=== PATIENT | female | born 1965 | race African-American/Black ===

== ENCOUNTER 2018-05-29 08:25 | Emergency (ER) | payer SELFPAY ==
[~2018-05-29] VITALS: Ht 162.6 cm; Wt 98.6 kg
[2018-05-29] MEDS ORDERED: NORCO, ANEXSIA 5/325MG TABLET (HYDROcodone/ACETAMINOPHEN) PO ONE (10:00)
--- NOTE | 2018-05-29 10:09 | REP ---
LEFT ELBOW, FOUR VIEWS: HISTORY: Trauma. There is no acute fracture or dislocation. The joint space is normal in appearance. IMPRESSION: There is no acute fracture or dislocation. Electronically Signed by Joe Menedz MD 05/29/2018 10:10 A
--- NOTE | 2018-05-29 10:14 | REP ---
LEFT SHOULDER, THREE VIEWS: HISTORY: Trauma. There is no acute fracture or dislocation. The joint spaces are normal in appearance. IMPRESSION:There is no acute fracture or dislocation. Electronically Signed by Joe Mendez MD 05/29/2018 10:18 A
--- NOTE | 2018-05-29 10:28 | REP ---
LEFT KNEE, COMPLETE: 05/29/2018. Clinical history: Trauma. Findings: Marginal osteophytes at the medial and lateral joint lines as well as the tibial spines. The patellar joint margin showed some spurs and narrowing on the lateral view. A suspected small suprapatellar effusion noted. I do not see a definite loose body or osteochondral defect. No visible or displaced fracture nor avulsion. Impression: 1. Tricompartment osteoarthritic change with question of a small joint effusion but no fracture, avulsion, loose body or definite osteochondral defect. Electronically Signed by Venu Mcmahon MD 05/29/2018 08:34 P
[2018-05-29 10:32] VITALS: O2SAT 98
--- NOTE | 2018-05-29 10:54 | REP ---
AP pelvis one-view : There is no pelvic fracture. The sacroiliac articulations and hip articulations are unremarkable. There are multiple calcifications, likely phleboliths. Impression: Negative AP pelvis. Left hip two views: There is no fracture or dislocation. Mineralization joint space are normal. No calcifications or foreign bodies. Impression: Negative left hip. Electronically Signed by Angel Barillas MD 05/29/2018 10:46 A
[2018-05-29 11:10] VITALS: BP 146/82
== END 2018-05-29 11:12 | disposition home or self-care (01) ==
LOC: EDSEX 08:25 → M ED 08:25 → EDBD 08:25 → M ED 11:12
DX: T14.8XXA Other injury of unspecified body region, initial encounter (principal); W00.0XXA Fall on same level due to ice and snow, initial encounter; Y92.410 Unspecified street and highway as the place of occurrence of the external cause

== ENCOUNTER 2018-11-14 13:22 | Emergency (ER) | payer OTHER, SELFPAY ==
[~2018-11-14] VITALS: Ht 162.6 cm; Wt 113.6 kg
[2018-11-14] MEDS ORDERED: MOTR200T44 PO (13:27)
[2018-11-14] MEDS ORDERED: KETOROLAC 60 MG/2 ML VIAL (J1885) IM ONE (15:30)
[2018-11-14] MEDS ORDERED: IBUP-1022 PO (15:39)
[2018-11-14] MEDS ORDERED: CYCL10TA PO (15:39)
[2018-11-14 16:37] VITALS: BP 174/91
== END 2018-11-14 16:47 | disposition home or self-care (01) ==
LOC: M ED 13:22
DX: M54.5 Low back pain (principal)
CPT/HCPCS: 96372; 99283; J1885; J3360